=== PATIENT | female | born 1985 | race African-American/Black ===

== ENCOUNTER 2022-08-21 15:15 | Inpatient (IN) | payer OTHER ==
[2022-08-21 15:55] VITALS: BMI 30.8
[2022-08-21] MEDS ORDERED: BETAMET ACET/BETAMET NA PH 30 MG/5 ML VIAL IM ONE (16:09)
[2022-08-21] MEDS ORDERED: MAGNESIUM 4GM/H20 - 4 GM/100 ML IVPB IVPB SCH (16:15)
[2022-08-21] MEDS ORDERED: DEXTROSE 5%-LACTATED RINGERS 1,000 ML IV SCH (16:15)
[2022-08-21 16:42] LABS: BASO % 0.2 % (0-2.0); EOS % 0.4 % (0-4.5); HEMATOCRIT 27.5 % (32.4-45.2); HEMOGLOBIN 9.5 GM/dL (10.7-15.3); LYMPH % 16.8 % (8-40); MCH 27.5 pg (25.7-33.7); MCHC 34.5 g/dl (32.0-36.0); MEAN CELL VOLUME 79.6 fl (80-96); MEAN PLT VOLUME 8.9 fl (7.5-11.1); MONO % 9.8 % (3.8-10.2); NEUT % 72.8 % (42.8-82.8); PLATELET COUNT 177 10^3/uL (134-434); RBC 3.46 M/mm3 (3.60-5.2); RDW 13.8 % (11.6-15.6); RETICULOCYTES 1.77 % (0.5-1.5); WHITE BLOOD COUNT 6.8 K/mm3 (4.0-10.0)
[2022-08-21 16:53] LABS: INR 1.04 (0.83-1.09); PROTHROMBIN TIME (PATIENT) 12.1 SEC (9.7-13.0)
[2022-08-21] MEDS: MAGNESIUM SULFATE 20GM/500ML - 20 GM/500 ML INFUS.BAG IV SCH (17:00)
[2022-08-21 17:14] LABS: CALCIUM 9.1 mg/dL (8.5-10.1)
[2022-08-21 17:15] LABS: ALBUMIN 2.6 g/dl (3.4-5.0); BLOOD UREA NITROGEN 3.8 mg/dL (7-18)
[2022-08-21 17:17] LABS: MAGNESIUM 1.5 mg/dL (1.8-2.4); URIC ACID 3.7 mg/dL (2.6-7.2)
[2022-08-21 17:18] LABS: CREATININE 0.5 mg/dL (0.55-1.3)
[2022-08-21 17:19] LABS: BILIRUBIN,TOTAL 0.4 mg/dL (0.2-1)
[2022-08-21] MEDS: ELECTROLYTE-148 SOLN 1,000 ML IV SCH (19:00)
[2022-08-21] MEDS ORDERED: NIFEdipine 10 MG CAPSULE (FP) ONE (19:44)
[2022-08-21] MEDS ORDERED: NIFEdipine 10 MG CAPSULE (FP) PO STA (19:46)
[2022-08-21] MEDS ORDERED: NIFEdipine 10 MG CAPSULE (FP) PO ONE (19:47)
[2022-08-21] MEDS ORDERED: LABETALOL HCL 20 MG/4 ML VIAL ONE (20:00)
[2022-08-21] MEDS ORDERED: LABETALOL HCL 5 MG/1 ML (100MG/20 ML VIAL) IVPUSH ONE (20:01)
[2022-08-21] MEDS ORDERED: NIFEdipine E.R. 30 MG TABLET PO ONE (21:54)
[2022-08-21] MEDS: NIFEdipine E.R. 30 MG TABLET PO SCH (22:00)
[2022-08-21] MEDS: ACETAMINOPHEN 325 MG TABLET (FP) PO PRN (22:10)
[2022-08-21] MEDS ORDERED: AMPICILLIN SODIUM 2 GM VIAL ONE (23:29)
[2022-08-21] MEDS ORDERED: AMPICILLIN - 2 GM in SODIUM CHLORIDE 100 ML IVPB ONE (23:55)
[2022-08-22] MEDS: MAGNESIUM SULFATE 20GM/500ML - 20 GM/500 ML INFUS.BAG IV SCH ×2 (02:00→12:00)
[2022-08-22] MEDS: ELECTROLYTE-148 SOLN 1,000 ML IV SCH (02:00)
[2022-08-22] MEDS ORDERED: MAGNESIUM SULFATE 20GM/500ML - 20 GM/500 ML INFUS.BAG ONE ×2 (02:03→11:44)
[2022-08-22] MEDS ORDERED: AMPICILLIN SODIUM 1 GM VIAL ONE ×3 (03:42→11:45)
[2022-08-22] MEDS ORDERED: ACETAMINOPHEN 325 MG TABLET (FP) ONE (03:57)
[2022-08-22] MEDS: AMPICILLIN - 1 GM in SODIUM CHLORIDE 100 ML IVPB SCH ×3 (04:00→12:00)
[2022-08-22] MEDS: ACETAMINOPHEN 325 MG TABLET (FP) PO PRN (04:00)
[2022-08-22 05:11] LABS: CALCIUM 8.3 mg/dL (8.5-10.1)
[2022-08-22 05:12] LABS: ALBUMIN 2.6 g/dl (3.4-5.0); BLOOD UREA NITROGEN 4.6 mg/dL (7-18); MAGNESIUM 4.3 mg/dL (1.8-2.4)
[2022-08-22 05:15] LABS: CREATININE 0.4 mg/dL (0.55-1.3)
[2022-08-22 05:17] LABS: BILIRUBIN,TOTAL 0.6 mg/dL (0.2-1)
[2022-08-22 08:45] LABS: BASO % 0.1 % (0-2.0); HEMOGLOBIN 10.3 GM/dL (10.7-15.3); LYMPH % 7.3 % (8-40); MCH 27.5 pg (25.7-33.7); MCHC 34.3 g/dl (32.0-36.0); MEAN CELL VOLUME 80.2 fl (80-96); MEAN PLT VOLUME 8.6 fl (7.5-11.1); MONO % 5.5 % (3.8-10.2); NEUT % 87.1 % (42.8-82.8); PLATELET COUNT 188 10^3/uL (134-434); RBC 3.74 M/mm3 (3.60-5.2); RDW 13.8 % (11.6-15.6); WHITE BLOOD COUNT 10.6 K/mm3 (4.0-10.0)
[2022-08-22] MEDS ORDERED: NIFEdipine E.R. 30 MG TABLET PO ONE (08:52)
[2022-08-22] MEDS: NIFEdipine E.R. 30 MG TABLET PO SCH (09:00)
[2022-08-22] MEDS ORDERED: BETAMET ACET/BETAMET NA PH 30 MG/5 ML VIAL IM ONE (12:00)
[2022-08-22] MEDS ORDERED: FENTANYL CITRATE/PF 50 MCG/ML VIAL ONE (13:29)
[2022-08-22] MEDS ORDERED: morphine SULFATE (PF) 1 MG/2 ML SYRINGE ONE (13:29)
[2022-08-22] MEDS ORDERED: PHENYLEPHRINE HCL 10 MG/1 ML SINGLE DOSE VIAL ONE (13:31)
[2022-08-22] MEDS ORDERED: ePHEDrine SULFATE 50 MG/1 ML AMPULE ONE (13:32)
[2022-08-22] MEDS ORDERED: DEXAMETHASONE SOD PHOSPHATE 4 MG/1 ML VIAL ONE (13:33)
[2022-08-22] MEDS ORDERED: SODIUM CHLORIDE 0.9% P/F 10 ML VIAL IJ ONE (13:33)
[2022-08-22] MEDS ORDERED: ONDANSETRON 4 MG/2 ML VIAL ONE (13:33)
[2022-08-22] MEDS ORDERED: ceFAZolin SODIUM 1 GM VIAL ONE (13:33)
[2022-08-22] MEDS ORDERED: PROPOFOL 40 ML ONE (13:37)
[2022-08-22] MEDS ORDERED: SUCCINYLCHOLINE CHLORIDE 200 MG/10 ML SYRINGE ONE (13:37)
[2022-08-22] MEDS: OXYTOCIN 20 UNITS in 0.9% NS 20 UNIT/1,000 ML INFUS.BAG IV SCH (14:30)
[2022-08-22] MEDS ORDERED: IBUPROFEN 800 MG/8 ML IJ IVPB PRN (15:28)
[2022-08-22] MEDS ORDERED: METHYLERGONOVINE MALEATE 0.2 MG/1 ML AMP IM PRN (15:28)
[2022-08-22] MEDS ORDERED: LABETALOL HCL 100 MG TABLET (FP) ONE ×2 (15:42→22:25)
[2022-08-22] MEDS: LABETALOL HCL 200 MG TABLET (FP) PO SCH ×2 (15:45→22:30)
[2022-08-22] MEDS ORDERED: IBUPROFEN 800 MG/8 ML IJ IVPB ONE (16:26)
[2022-08-22] MEDS: FERROUS SO4 325 MG TABLET (FP) PO SCH (23:13)
[2022-08-23] MEDS: OXYTOCIN 20 UNITS in 0.9% NS 20 UNIT/1,000 ML INFUS.BAG IV SCH ×2 (00:19→19:26)
[2022-08-23] MEDS ORDERED: oxyCODONE HCL 5 MG TABLET PO PRN ×2 (03:28)
[2022-08-23 07:51] LABS: BASO % 0.1 % (0-2.0); HEMATOCRIT 23.5 % (32.4-45.2); HEMOGLOBIN 8.2 GM/dL (10.7-15.3); LYMPH % 9.4 % (8-40); MCH 27.7 pg (25.7-33.7); MCHC 34.7 g/dl (32.0-36.0); MEAN CELL VOLUME 79.9 fl (80-96); MEAN PLT VOLUME 9.2 fl (7.5-11.1); MONO % 11.9 % (3.8-10.2); NEUT % 78.6 % (42.8-82.8); PLATELET COUNT 143 10^3/uL (134-434); RBC 2.95 M/mm3 (3.60-5.2); RDW 14.3 % (11.6-15.6)
[2022-08-23] MEDS: PRENATAL VITAMINS W/ FOLIC ACID TABLET (FP) PO SCH (10:17)
[2022-08-23] MEDS: LABETALOL HCL 200 MG TABLET (FP) PO SCH ×2 (10:17→21:35)
[2022-08-23] MEDS: FERROUS SO4 325 MG TABLET (FP) PO SCH ×2 (10:17→21:32)
[2022-08-23] MEDS: NIFEdipine E.R. 30 MG TABLET PO SCH (10:17)
[2022-08-23] MEDS: IBUPROFEN 600 MG TABLET (FP) PO PRN ×2 (10:26→21:36)
[2022-08-23] MEDS: ACETAMINOPHEN 325 MG TABLET (FP) PO PRN (15:24)
[2022-08-23] MEDS ORDERED: BISACODYL 10 MG SUPP.RECT RC PRN (15:28)
[2022-08-23] MEDS: ELECTROLYTE-148 SOLN 1,000 ML IV SCH (19:26)
[2022-08-23] MEDS: SENNOSIDES/DOCUSATE COMBO (SENNA PLUS) TABLET (UD) PO PRN (21:32)
[2022-08-23] MEDS: SIMETHICONE 80 MG TAB.CHEW (FP) PO PRN (21:32)
[2022-08-24] MEDS: SIMETHICONE 80 MG TAB.CHEW (FP) PO PRN ×3 (08:49→21:13)
[2022-08-24] MEDS: IBUPROFEN 600 MG TABLET (FP) PO PRN ×3 (08:49→21:13)
[2022-08-24] MEDS ORDERED: FLU VACC QS2022-23(6MOS UP)/PF 60 MCG/0.5 ML SYRINGE IM ONE (10:00)
[2022-08-24] MEDS ORDERED: DIPHTH,PERTUSS(ACELL),TET 0.5 ML DISP.SYRIN IM ONE (10:00)
[2022-08-24] MEDS: FERROUS SO4 325 MG TABLET (FP) PO SCH ×2 (10:50→21:13)
[2022-08-24] MEDS: NIFEdipine E.R. 30 MG TABLET PO SCH (10:50)
[2022-08-24] MEDS: PRENATAL VITAMINS W/ FOLIC ACID TABLET (FP) PO SCH (10:50)
[2022-08-24] MEDS: LABETALOL HCL 200 MG TABLET (FP) PO SCH ×2 (10:50→21:17)
[2022-08-24] MEDS: SENNOSIDES/DOCUSATE COMBO (SENNA PLUS) TABLET (UD) PO PRN (21:13)
[2022-08-25] MEDS: SIMETHICONE 80 MG TAB.CHEW (FP) PO PRN ×2 (09:15→16:10)
[2022-08-25] MEDS: NIFEdipine E.R. 30 MG TABLET PO SCH (09:15)
[2022-08-25] MEDS: FERROUS SO4 325 MG TABLET (FP) PO SCH ×2 (09:15→22:03)
[2022-08-25] MEDS: LABETALOL HCL 200 MG TABLET (FP) PO SCH ×2 (09:15→22:03)
[2022-08-25] MEDS: PRENATAL VITAMINS W/ FOLIC ACID TABLET (FP) PO SCH (09:15)
[2022-08-25] MEDS: IBUPROFEN 600 MG TABLET (FP) PO PRN ×2 (09:16→16:10)
[2022-08-25] MEDS: ACETAMINOPHEN 325 MG TABLET (FP) PO PRN ×2 (17:42→22:03)
[2022-08-25] MEDS: CEFAZOLIN SODIUM 2 GM in DEXTROSE 5%-WATER 100 ML IVPB SCH (18:00)
[2022-08-25 19:56] LABS: HEMATOCRIT 23.7 % (32.4-45.2); HEMOGLOBIN 7.7 GM/dL (10.7-15.3); MCH 26.4 pg (25.7-33.7); MCHC 32.7 g/dl (32.0-36.0); MEAN CELL VOLUME 80.8 fl (80-96); MEAN PLT VOLUME 7.8 fl (7.5-11.1); PLATELET COUNT 116 10^3/uL (134-434); RBC 2.93 M/mm3 (3.60-5.2); WHITE BLOOD COUNT 13.1 K/mm3 (4.0-10.0)
[2022-08-25] MEDS: SENNOSIDES/DOCUSATE COMBO (SENNA PLUS) TABLET (UD) PO PRN (23:07)
[2022-08-26] MEDS: CEFAZOLIN SODIUM 2 GM in DEXTROSE 5%-WATER 100 ML IVPB SCH ×2 (01:24→09:08)
[2022-08-26] MEDS: ACETAMINOPHEN 325 MG TABLET (FP) PO PRN (06:16)
[2022-08-26] MEDS: LABETALOL HCL 200 MG TABLET (FP) PO SCH (09:04)
[2022-08-26] MEDS: NIFEdipine E.R. 30 MG TABLET PO SCH (09:04)
[2022-08-26] MEDS: FERROUS SO4 325 MG TABLET (FP) PO SCH (09:04)
[2022-08-26] MEDS: PRENATAL VITAMINS W/ FOLIC ACID TABLET (FP) PO SCH (09:04)
[2022-08-26 09:57] VITALS: BP 130/87; PULSE 92; RESP 18; TEMP 98.1
== END 2022-08-26 12:50 | disposition home or self-care (01) | DRG 788 ==
LOC: JLDR 15:15 → EDBD 15:15 → J3W 23:40 → JLDR 08-22 00:27 → J3W 08-22 22:26
PROVIDERS: ADMIT Obstetrics & Gynecology; ATTEND Obstetrics & Gynecology
PROC: 10D00Z1 Extraction of Products of Conception, Low, Open Approach (ICD-10-PCS; principal; 2022-08-22)
DX: O14.14 Severe pre-eclampsia complicating childbirth (principal); O69.81X0 Labor and delivery complicated by cord around neck, without compression, not applicable or unspecified; Z3A.34 34 weeks gestation of pregnancy; Z37.0 Single live birth
CPT/HCPCS: 36415; 36430; 80048; 80053; 82570; 82977; 83010; 83735; 84156; 84450; 84460; 84550; 85025; 85027; 85032; 85045; 85610; 85730; 86762; 86780; 86850; 86900; 86901; 86922; 87340; 88307-TC; 90715; 96372; C9803-CS; P9058; U0003; U0005